=== PATIENT | male | born 1980 | race Two or more races ===

== ENCOUNTER 2021-03-12 14:15 | Emergency (ER) | payer OTHER, SELFPAY ==
[~2021-03-12] VITALS: Ht 172.7 cm; Wt 85.2 kg
--- NOTE | 2021-03-12 14:27 | NUR ---
EKG PERFORMED IN TRIAGE
[2021-03-12] MEDS ORDERED: PLEASE ENTER HEIGHT AND WEIGHT MC SCH (14:30)
[2021-03-12] MEDS ORDERED: ASPIRIN 81 MG TABLET CHEW PO ONE (14:30)
[2021-03-12 15:12] LABS: BASOPHILS % (AUTO) 1 % (0-1); EOSINOPHILS % (AUTO) 2 % (1-7); LYMPHOCYTES % (AUTO) 27 % (22-44); MEAN CORPUSCULAR HEMOGLOBIN 31.8 pg (27.5-34.5); MEAN CORPUSCULAR HGB CONC 34.5 g/dL (33.2-36.2); MEAN PLATELET VOLUME 8.5 fL (7.4-10.4); MONOCYTES % (AUTO) 8 % (2-9); NEUTROPHILS % (AUTO) 63 % (42-75); PLATELET COUNT 261 x10^3/uL (130-400); RED BLOOD COUNT 4.92 x10^6/uL (4.38-5.82); RED CELL DISTRIBUTION WIDTH 13.3 % (9.4-14.8)
[2021-03-12 15:21] LABS: ALANINE AMINOTRANSFERASE 176 U/L (12-78); ANION GAP 4 mmol/L (5-15); CALCIUM 9.3 mg/dL (8.5-10.1); CHLORIDE 107 mmol/L (98-107); CREATININE 0.94 mg/dL (0.7-1.3)
[2021-03-12 15:25] LABS: ALKALINE PHOSPHATASE 98 U/L (45-117); BILIRUBIN,TOTAL 1.4 mg/dL (0.2-1.0); TOTAL PROTEIN 7.9 g/dL (6.4-8.2); TROPONIN I < 0.015 ng/mL (0.000-0.045)
--- NOTE | 2021-03-12 18:25 | NUR ---
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
[2021-03-12] MEDS ORDERED: ASPIRIN 81 MG TABLET CHEW ONE (18:28)
--- NOTE | 2021-03-12 18:39 | NUR ---
attempt to use [employer] property loss specialist device unsuccessful. [facility] was in room for eval. rport to rj candelario. as
--- NOTE | 2021-03-12 18:54 | NUR ---
REPORT RECIEVED FROM PADDY QIU
[2021-03-12] MEDS ORDERED: ONDANSETRON ODT 4 MG PO ONE (19:00)
[2021-03-12] MEDS ORDERED: MECLIZINE CHEWABLE 25 MG TAB PO ONE (19:00)
--- NOTE | 2021-03-12 19:18 | NUR ---
pt presents to er for dizziness and chest pain since , pt states he feels palpitations and that when he has chest pain it was a sharp, pt states he also feels numbness in his hands, pt also states he gets a headache in his forehead, [place] RN at bedside for interpretation
[2021-03-12] MEDS ORDERED: MECLIZINE CHEWABLE 25 MG TAB ONE (19:23)
[2021-03-12] MEDS ORDERED: ONDANSETRON ODT 4 MG ONE (19:23)
[2021-03-12] MEDS ORDERED: DIAZEPAM 5 MG TABLET PO ONE (20:00)
[2021-03-12] MEDS ORDERED: DIAZEPAM 5 MG TABLET ONE (20:17)
--- NOTE | 2021-03-12 20:51 | NUR ---
pt states he feels better from 04/14 to 12/13
[2021-03-12 21:45] VITALS: BP 126/86
== END 2021-03-12 21:58 | disposition home or self-care (01) ==
LOC: ED 14:30
DX: H81.10 Benign paroxysmal vertigo, unspecified ear (principal); R07.89 Other chest pain; R51.9 Headache, unspecified
CPT/HCPCS: 36415; 70450; 71045; 80053; 84484; 85025; 93005; 99285; Q0162